=== PATIENT | female | born 2000 | race Caucasian/White ===

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

== ENCOUNTER 2020-07-29 20:12 | Emergency (ER) | payer OTHER, BC ==
[~2020-07-29] VITALS: Ht 157.5 cm; Wt 68.2 kg
[2020-07-29 22:07] LABS: BILIRUBIN,URINE NEGATIVE (NEG); CLARITY,URINE CLEAR; COLOR,URINE YELLOW; NITRITE,URINE NEGATIVE (NEG); PROTEIN,URINE NEGATIVE (NEG-TRACE); UROBILINOGEN,URINE 0.2 mg/dL (0.2 mg/dL)
[2020-07-29 22:21] LABS: BACTERIA,URINE FEW /HPF (0-FEW)
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
[2020-07-29] MEDS ORDERED: IBUPROFEN 200 MG TABLET. PO ONE (23:45)
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
[2020-07-30 00:22] VITALS: BP 137/66
[2020-07-30] MEDS ORDERED: CYCL5TAB PO (00:51)
== END 2020-07-30 01:01 | disposition home or self-care (01) ==
LOC: ER 20:12
DX: M54.2 Cervicalgia (principal); M54.6 Pain in thoracic spine; G89.11 Acute pain due to trauma; Z88.0 Allergy status to penicillin; V49.49XA Driver injured in collision with other motor vehicles in traffic accident, initial encounter; Y93.89 Activity, other specified; Y92.488 Other paved roadways as the place of occurrence of the external cause; Y99.8 Other external cause status
CPT/HCPCS: 70450; 72125; 81001; 81025; 99285-25